=== PATIENT | male | born 1990 | race Caucasian/White ===

== ENCOUNTER 2022-05-15 11:51 | Observation (INO) ==
[2022-05-15 13:47] LABS: Basophils % 0.3 %; Eosinophils % 0.3 %; Hematocrit 41.4 % (37.5-50.1); Hemoglobin 13.6 g/dL (12.9-16.9); Immature Granulocytes % 0.5 % (0-4); Lymphocytes # 0.9 K/mcL (0.6-4.6); Lymphocytes % 9.2 %; Mean Corpuscular HGB Conc 32.9 g/dL (31.6-35.5); Mean Corpuscular Hemoglobin 28.7 pg (28.0-33.3); Mean Corpuscular Volume 87.3 fL (83.0-100.0); Mean Platelet Volume 11.6 fL (9.4-12.4); Monocytes # 0.2 K/mcL (0.0-1.3); Monocytes % 2.3 %; Neutrophils # 8.6 K/mcL (1.6-8.9); Platelet Count 227 K/mcL (140-400); Red Blood Count 4.74 M/mcL (4.19-5.50); Red Cell Distribution Width 14.2 % (11.5-14.5); Segmented Neutrophils % 87.4 %; White Blood Count 9.9 K/mcL (4.3-11.1)
[2022-05-15 13:57] LABS: INR 1.1; Prothrombin Time 12.3 Seconds (9.4-12.1)
[2022-05-15 14:09] LABS: BUN/Creatinine Ratio 23 (6-26); Blood Urea Nitrogen 23 mg/dL (6-20); C-Reactive Protein < 5 mg/L (Less than 10); Calcium 9.6 mg/dL (8.6-10.3); Carbon Dioxide 23 mEq/L (23-29); Chloride 105 mEq/L (98-107); Glucose 116 mg/dL (70-105); Osmolality,Calculated 285 (280-300); Potassium 4.2 mEq/L (3.5-5.1); Sodium 135 mEq/L (136-145)
[2022-05-15] MEDS ORDERED: *HR* FentaNYL (PF) 100 MCG/2 ML VIAL IVP ONE (16:12)
[2022-05-15] MEDS ORDERED: *HR* HYDROcodone/Acet 5/325 mg TABLET PO PRN (17:06)
[2022-05-15] MEDS ORDERED: Ondansetron 4 MG/2 ML VIAL IVP PRN (17:06)
[2022-05-15] MEDS ORDERED: Naloxone 0.4 MG/ML INJ IVP PRN (17:06)
[2022-05-15] MEDS ORDERED: Acetaminophen 325 MG TABLET PO PRN (17:06)
[2022-05-15] MEDS ORDERED: predniSONE 20 MG TABLET PO ONE (17:07)
[2022-05-15] MEDS: Nicotine 21 MG PATCH.TD24 TD SCH (18:29)
[2022-05-15] MEDS ORDERED: Ketorolac 30 MG/ML VIAL IM PRN (21:19)
[2022-05-15] MEDS: *HR* OxyCODONE Immed Rel 5 MG TABLET PO PRN (21:27)
[2022-05-16] MEDS: *HR* OxyCODONE Immed Rel 5 MG TABLET PO PRN ×2 (03:25→10:43)
[2022-05-16] MEDS ORDERED: *HR* Enoxaparin 40 MG/0.4 ML SYRINGE SQ SCH (06:00)
[2022-05-16 07:01] VITALS: BP 135/80; PULSE 70; TEMP 98.1; O2SAT 98
[2022-05-16] MEDS: Nicotine 21 MG PATCH.TD24 TD SCH (07:33)
== END 2022-05-16 15:00 | disposition home or self-care (01) ==
LOC: EMEROOARM 11:51 → 4WAOSI 11:51
PROVIDERS: ADMIT Internal Medicine; ATTEND Internal Medicine